=== PATIENT | female | born 1990 | race Hispanic/Latino ===

== ENCOUNTER 2021-10-22 07:02 | Emergency (ER) | payer SELFPAY ==
[2021-10-22] MEDS ORDERED: Ondansetron ODT 4 MG TAB ONE (08:38)
[2021-10-22] MEDS ORDERED: Famotidine 20 MG TAB ONE (08:39)
== END 2021-10-22 09:18 | disposition home or self-care (01) ==
LOC: CSHERS 07:02
DX: N64.4 Mastodynia (principal); R11.2 Nausea with vomiting, unspecified; K21.9 Gastro-esophageal reflux disease without esophagitis
CPT/HCPCS: 36415; 71045; 84484; 93005; Q0162

== ENCOUNTER 2022-07-23 07:33 | Emergency (ER) | payer SELFPAY ==
[2022-07-23] MEDS ORDERED: Acetaminophen 325 MG TAB ONE (08:24)
[2022-07-23] MEDS ORDERED: Ventolin HFA Inhaler 60 PUFF INHALER ONE (08:29)
[2022-07-23 09:05] LABS: Pregnancy Test - Urine (BHCG) Negative (Negative); Pregu Control Background? CLEAR/WHITE (CLR/WHITE); Pregu Control Bar Appear? YES (CONTROL BAR)
[2022-07-23 09:18] LABS: SARS-CoV-2 NAA Rapid Test Not Detected (NotDetected)
== END 2022-07-23 09:40 | disposition home or self-care (01) ==
LOC: CSHERS 07:33
DX: J20.9 Acute bronchitis, unspecified (principal); K21.9 Gastro-esophageal reflux disease without esophagitis; Z20.822 Contact with and (suspected) exposure to COVID-19
CPT/HCPCS: 71046; 81025; 93005; 94664